=== PATIENT | female | born 1985 | race Caucasian/White ===

== ENCOUNTER 2016-03-15 11:08 | Emergency (ER) | payer BC, OTHER ==
[2016-03-15] MEDS ORDERED: DICYCLOMINE 20MG/2ML VIAL IM ONE (14:12)
== END 2016-03-15 15:09 | disposition home or self-care (01) ==
LOC: ER 11:08
DX: K80.20 Calculus of gallbladder without cholecystitis without obstruction (principal)
CPT/HCPCS: 36415; 76705; 80053; 81003; 83690; 84703; 85025; 96372